=== PATIENT | female | born 1960 | race Caucasian/White ===

== ENCOUNTER 2016-07-21 02:35 | Inpatient (IN) | payer OTHER ==
[~2016-07-21] VITALS: Ht 162.6 cm; Wt 74.8 kg
[~2016-07-21 02:35] MED LIST: LISINOPRIL10 M1 PO; RANITIDINE HCL150 M2 PO; SIMVASTATIN40 M1 PO
--- NOTE | 2016-07-21 10:07 | RADIOLOGY REPORT ---
EXAMINATION: XR HIP, LEFT CLINICAL INFORMATION: Status post total hip arthroplasty. COMPARISON: None TECHNIQUE: Two views of the left hip. FINDINGS: There are immediate postoperative changes consistent with a left total hip arthroplasty with metallic acetabular, femoral head, and proximal femoral components without evidence of immediate hardware complication or failure. IMPRESSION: Postoperative changes without evidence of immediate complication.
[2016-07-21] MEDS ORDERED: MIRALAX17 G1 PO (10:24)
[2016-07-21] MEDS ORDERED: ASPIRIN EC325 M2 PO (10:24)
[2016-07-21] MEDS ORDERED: MS CONTIN15 M2 PO (10:24)
[2016-07-21] MEDS ORDERED: DILAUDID2 M1 PO (10:24)
[2016-07-21] MEDS ORDERED: COLACE100 M1 PO (10:24)
--- NOTE | 2016-07-21 10:32 | Patient Discharge Instructions ---
Discharge Instructions General Discharge Information You were seen/treated for: Left hip pain secondary to unilateral primary osteoarthritis You had these procedures: Left total hip replacement Watch for these problems: Increasing pain despite the use of pain medication. Increasing redness, warmth, swelling. Drainage of any type from incision. Inability to bear weight on operative leg. Persistent nausea and vomitting. Fever greater than 101.5 degrees Do not soak the wound: Yes No bath, but you may shower: Yes Other wound care: No ointment of any type on or near incision at any time. No exceptions. Keep wound clean and dry. Dressing will be changed on the second day post operatively. Daily dry dressing changes recommended thereafter. Special Instructions: Aspirin: Please take as directed in order to help prevent the development of a blood clot. Take with food to protect stomach. Constipation: Pain medication can be very constipating. Please take colace and miralax as directed to ensure that you are moving your bowels. If you are unable to move your bowels for several days or if you are unable to pass gas, please contact your doctor. Diet Continue normal diet: Yes Recommended Diet: Heart Healthy Additional DIET Information: Advance as tolerated Activity Full Activity/No Limits: No Activity Self Limited: Yes Pounds, do NOT lift more than: 10 Activity Limited to: Weight bear as tolerated Acute Coronary Syndrome Inclusion Criteria At DC or during hospital stay patient has or had the following: ACS DIAGNOSIS No Discharge Core Measures Meds if any: Prescribed or Continued at Discharge Meds if any: NOT Prescribed or Continued at Discharge Congestive Heart Failure Inclusion Criteria At DC or during hospital stay patient has or had the following: CHF DIAGNOSIS No Discharge Core Measures Meds if any: Prescribed or Continued at Discharge Meds if any: NOT Prescribed or Continued at Discharge Cerebrovascular accident Inclusion Criteria At DC or during hospital stay patient has or had the following: CVA/TIA Diagnosis No Discharge Core Measures Meds if any: Prescribed or Continued at Discharge Meds if any: NOT Prescribed or Continued at Discharge Venous thromboembolism Inclusion Criteria VTE Diagnosis No VTE Type NONE VTE Confirmed by (Test) NONE Discharge Core Measures - Per Current guidelines, there needs to be overlap - treatment for the first 5 days of Warfarin therapy. - If discharged on Warfarin prior to 5 days of - overlap therapy, the patient will need to be - assessed for post discharge needs including - *Post discharge parental anticoagulation - *Warfarin and/or parental anticoagulation education - *Follow up date to check INR post discharge At least 5 days overlap therapy as Inpatient No Meds if any: Prescribed or Continued at Discharge Note: Overlap Therapy is Warfarin and Anticoagulant Meds if any: NOT Prescribed or Continued at Discharge
--- NOTE | 2016-07-21 10:32 | Admission Core Measures ---
Admission Meds I reviewed the following Meds: Current Medications Sig/Tobin Start time Last Medication Dose Stop Time Status Admin Acetaminophen 975 MG ONCE 07/21 0000 NR (Tylenol) 07/21 2358 Atorvastatin Calcium 20 MG 1700 07/21 170 AC (Lipitor) Cefazolin Sodium 2,000 MG ONCE 07/21 0000 NR (Kefzol-Ancef Inj) 07/21 2358 Famotidine 20 MG DAILY 07/21 1000 AC (Pepcid) Lisinopril 10 MG DAILY 07/21 1000 AC (Prinivil) Oxycodone HCl 10 MG ONCE 07/21 0000 NR (Roxicodone) 07/21 2358 Acute Coronary Syndrome Inclusion Criteria ACS Diagnosis No Inpatient Core Measures LDL Reminder: If No, please order W/I first 24hr of stay Congestive Heart Failure Inclusion Criteria CHF Diagnosis No Cerebrovascular accident Inclusion Criteria CVA/TIA Diagnosis No Inpatient Core Measures Bedside Swallow Eval Reminder: If BSE failed, place ST order Antithrombotic Reminder: Order Antithrombotic Medication by end of day 2 Antithrombotic Reminder: Document Reason Antithrombotic Not ordered by end of day 2 AFIB/Flutter Reminder: If Present, add to problem list AFIB/Flutter Reminder: Order Anticoag Medication for pts with AFIB/Flutter Atherosclerosis Reminder: If Present, add to problem list LDL Reminder: If No, please order W/I first 24hr of stay PT Order Reminder: If No, please order Venous thromboembolism Inpatient Core Measures VTE Risk Factors: Age > 40, Surgery No [facility] VTE prophylaxis d/t No contraindications No VTE Pharm Prophylaxis d/t No contraindications Inclusion Criteria - Per Current guidelines, there needs to be overlap - treatment for the first 5 days of Warfarin therapy. - Parenteral Anticoagulation (IV or SC) needs to be - given along with Warfarin therapy. VTE Diagnosis No VTE Type NONE VTE Confirmed by (Test) NONE Problem List As ranked by this Provider includes Assessment & Plan 1. Unilateral primary osteoarthritis, left hip HOME MEDS Home Med List Aspirin (Ecotrin*) 325 MG TABLET.DR 1 TAB PO BID ANTICOAGULATION Docusate Sodium (Colace) 100 MG CAPSULE 1 CAP PO BID CONSITPATION Hydromorphone HCl (Dilaudid) 2 MG TABLET 1-2 TAB PO Q4-6 PRN PAIN Lisinopril 10 MG TABLET 1 TAB PO DAILY HTN (Reported) Morphine Sulfate (Ms Contin) 15 MG TABLET.ER 1 TAB PO BID PAIN Polyethylene Glycol 3350 (Miralax) 17 GRAM POWD.PACK 1 PAC PO DAILY CONSTIPATION Ranitidine HCl 150 MG CAPSULE 1 CAP PO DAILY GERD (Reported) Simvastatin (Simvastatin*) 40 MG TABLET 1 TAB PO QPM CHOLESTEROL (Reported)
--- NOTE | 2016-07-21 10:35 | Surgical Discharge Summary ---
Visit Information Visit Dates Admission Date: 07/21/16 Discharge Date: 07/21/16 History of Present Illness Chief Complaint: Left hip pain related to unilateral primary osteoarthritis Medical History Isolation History: Standard Surgical History Pertinent Surgical History: non-contributory Review of Systems: SEE h&p Hospital Course Course Attending Physician: VINITA DUTTA MD Primary Care Physician: UNKNOWN Hospital Course: Patient was admitted to the hospital for an elective total joint replacement. Procedure was tolerated well and patient was transferred to a general surgical floor. Diet was advanced and tolerated and patient voided spontaneously. PT evaluated and treated. At time of discharge, vital signs were stable and within normal limits, neurovascular status was intact, and pain was controlled with oral pain medications. Allergies: Coded Allergies: clarithromycin (From BIAXIN) (Severe, HIVES 07/17/16) sulfamethoxazole (From BACTRIM) (Severe, HIVES 07/17/16) trimethoprim (From BACTRIM) (Severe, HIVES 07/17/16) codeine (NAUSEA / VOMITING 07/17/16) Uncoded Allergies: CANTALOUPE (? 07/17/16) CHERRIES (? 07/17/16) Disposition Summary Disposition Principal Diagnosis: Left hip unilateral primary osteoarthritis Additional Diagnosis: none Discharge Disposition: home health services Discharge Instructions General Discharge Information Code Status: Full Code Patient's Diet: Heart healthy, advance as tolerated Patient's Activity: WBAT Follow-Up Instructions/Appts: Follow up with Dr. Dutta in 6 weeks from date of surgery. Call office to arrange or confirm this appointment. Medications at Discharge Discharge Medications: Continue taking these medications: Lisinopril (Lisinopril) 10 MG TABLET 1 Tablet ORAL DAILY Comments: Last Taken: Time:NOT GIVEN ON THIS ADMISSION Simvastatin (Simvastatin*) 40 MG TABLET 1 Tablet ORAL Every night Comments: Last Taken: Time:NOT GIVEN ON THIS ADMISSION Ranitidine HCl (Ranitidine HCl) 150 MG CAPSULE 1 Capsule ORAL DAILY Comments: Last Taken: Time:NOT GIVEN ON THIS ADMISSION Start taking the following new medications: Aspirin (Ecotrin*) 325 MG TABLET.DR 1 Tablet ORAL TWICE DAILY Qty = 60 No Refills Docusate Sodium (Colace) 100 MG CAPSULE 1 Capsule ORAL TWICE DAILY Qty = 14 No Refills Instructions: DISCONTINUE USE IF YOU DEVELOP LOOSE STOOL OR DIARRHEA Polyethylene Glycol 3350 (Miralax) 17 GRAM POWD.PACK 1 Packet ORAL DAILY Qty = 7 No Refills Instructions: dissolve in water, DISCONTINUE USE IF YOU DEVELOP LOOSE STOOL OR DIARRHEA Morphine Sulfate (Ms Contin) 15 MG TABLET.ER 1 Tablet ORAL TWICE DAILY Qty = 6 No Refills Hydromorphone HCl (Dilaudid) 2 MG TABLET 1-2 Tablet ORAL EVERY 4-6 HOURS as needed for PAIN Qty = 36 No Refills Comments: Last Taken:07/21/16 Time:4PM
[2016-07-21 12:09] VITALS: BP 130/76
--- NOTE | 2016-07-21 14:44 | Operative Report ---
Operative/Inv Procedure Report Surgery Date: 07/21/16 Name of Procedure: Left total hip replacement Pre-Operative Diagnosis: Primary left hip DJD Post-Operative Diagnosis: Same Estimated Blood Loss: 250 Surgeon/Sales Account Specialist: TRA YANEZ,VINITA Sanchez Anesthesia: block Operative/Procedure Note Note: Description of Procedure: The patient was taken to the operating room and positively identified. After induction of spinal anesthesia and administration of appropriate pre-operative antibiotics, the patient was positioned supine on the operating room table and all bony prominences were well padded. After performing a surgical timeout, the left lower extremity was prepped and draped in the usual sterile fashion. A direct anterior approach was made to the left hip. The incision was carried sharply through superficial soft tissues to the level of the fascia. Meticulous hemostasis was maintained with Bovie electocautery. The fascia over the tensor fascia diana muscle was opened sharply and the interval between the TFL and the sartorius was entered bluntly taking care to stay lateral to the lateral femoral cutaneous nerve. Retractors were placed around the femoral neck and the pericapsular fat was identified. The ascending branches of the lateral femoral circumflex vessels were identified and carefully coagulated. The pericapsular fat and anterior capsule were then resected. A napkin ring osteotomy was performed and the femoral head was removed without difficulty. Attention was then turned to the acetabulum. After appropriate placement of retractors, the acetabulum was exposed. Soft tissue was cleaned from the acetabular margin and notch. Overhanging osteophytes were removed and the teardrop was exposed. The acetabulum was then sequentially reamed to accept a 52 mm [place] Tritanium hemispherical solid back shell. This was impacted into place in the appropriate position and fitted with a 32 mm Trident X3 zero degree polyethylene insert. Attention was then turned to the femur. After performing the appropriate ligament releases, the proximal femur was exposed. It was then sequentially broached to accept a size 4 [place] Accolade 2 stem. This was trialed for leg length and stability. The trial component was removed and the final component was impacted into place. The trunnion was carefully cleaned and fit with a 32 mm, +4 Biolox delta ceramic femoral head. The hip was reduced and put through a full range of motion and found to be stable. The articular space was then irrigated with sterile saline. The periarticular soft tissues were infilitrated with Marcaine. The fascial layer was closed with interrupted #1 vicryl suture and the skin was re-approximated with interrupted 2 -0 vicryl. The skin was closed with a running 3-0 V-Lock suture. Steri-strips and a sterile dressing were applied. The patient was awakened and taken to the recovery room in satisfactory condition.
--- NOTE | 2016-07-21 14:50 | PN- Orthopedic ---
Subjective Subjective: POST OP CHECK feeling ok, c/o L knee pain, soreness at L hip, maria diet, no n/v, OOB with PT- cleared to [place] home today Objective Vital Signs and I&Os Vital Signs Date Time Temp Pulse Resp B/P B/P Pulse O2 O2 Flow FiO2 Mean Ox Delivery Rate 07/21 1209 98.0 76 18 130/76 97 Room Air Intake & Output 07/21 1600 07/21 0800 07/21 0000 07/20 1600 07/20 0800 07/20 0000 Intake Total Output Total Balance Patient 165 lb Weight Physical Exam: gen: NAD card: s1s2 rrr pulm: ctab ext: L hip dressing cdi, ttp, + edema, Palp pedal pulses bl, calves soft nt bl, gross sensate intact and equal bl Current Medications: Current Medications Sig/Tobin Start time Last Medication Dose Route Stop Time Status Admin Acetaminophen 1,000 MG Q6P PRN 07/21 1200 AC IV 07/22 1149 Acetaminophen 650 MG Q4P PRN 07/21 1200 AC PO Acetaminophen 0 .STK-MED ONE 07/21 0715 DC PO Acetaminophen 975 MG ONCE 07/21 0000 DC PO 07/21 2359 Aspirin 325 MG BID 07/21 2200 AC PO Atorvastatin Calcium 20 MG 1700 07/21 1700 DC PO Atorvastatin Calcium 20 MG 1700 07/21 1700 AC PO Cefazolin Sodium 2 GM IQ8 07/21 1600 AC N/A 1 UNIT IV 07/22 0029 Cefazolin Sodium 2,000 MG ONCE 07/21 0000 DC IV 07/21 2359 Dextrose/Sodium 1,000 ML .[id number] 07/21 1200 AC Chloride IV Docusate Sodium 100 MG BID 07/21 2200 AC PO Famotidine 20 MG DAILY 07/22 1000 AC PO Famotidine 20 MG DAILY 07/21 1000 DC PO Hydromorphone HCl 2 MG Q4P PRN 07/21 1200 AC PO Hydromorphone HCl 4 MG Q4P PRN 07/21 1200 AC 07/21 PO 1204 Ketorolac 15 MG Q8P PRN 07/21 1200 AC Tromethamine IV 07/24 1149 Lisinopril 10 MG DAILY 07/22 1000 AC PO Lisinopril 10 MG DAILY 07/21 1000 DC PO Morphine Sulfate 2 MG Q2P PRN 07/21 1200 AC IV Ondansetron HCl 4 MG Q6P PRN 07/21 1200 AC IV Oxycodone HCl 0 .STK-MED ONE 07/21 0715 DC PO Oxycodone HCl 10 MG ONCE 07/21 0000 DC PO 07/21 2359 Polyethylene Glycol 17 GM DAILY 07/22 1000 AC PO Promethazine HCl 12.5 MG Q6P PRN 07/21 1200 AC IV 07/28 1029 Assessment/Plan Assessment/Plan POD0 sp L THR, anterior approach, stable, with appropriate postop pain. P: HL prn pain meds oob, ambulate home meds dc planning Core Measures/Miscellaneous Venous Thromboembolism VTE Risk Factors: Surgery VTE Contraindications: No Contraindications VTE Diagnosis: No VTE Type: NONE VTE Confirmed by (Test): NONE Beta Truong Is Beta Truong a Home Med? No Antibiotics Is Patient on Antibiotics? Yes If Yes: prophylaxis
== END 2016-07-21 17:32 | disposition home health service (06) | DRG 470 ==
LOC: SDA 02:35 → ENRESERV 10:18 → ENTRNSPT 11:01 → EDTRNSPTTYP 11:09 → EDTRNSPT 11:09 → 2NA 11:23 → CMPTRNSPT 11:37 → 2NA 17:32
PROVIDERS: ADMIT Orthopaedic Surgery
PROC: 0SRB04A Replacement of Left Hip Joint with Ceramic on Polyethylene Synthetic Substitute, Uncemented, Open Approach (ICD-10-PCS; principal; 2016-07-21)
DX: M16.12 Unilateral primary osteoarthritis, left hip (principal); I10 Essential (primary) hypertension; K21.9 Gastro-esophageal reflux disease without esophagitis; E78.5 Hyperlipidemia, unspecified
CPT/HCPCS: 2NAP; 73502-LT; 88304; 97110-GO; 97116-GO; 97161-GP; 97530-GO; J0131; J0690; J0735; J2550; J7042